=== PATIENT | male | born 2000 | race Native Hawaiian/Other Pacific Islander ===

== ENCOUNTER 2019-08-06 12:23 | Outpatient (CLI) | payer OTHER ==
[2019-08-06 12:54] LABS: POTASSIUM 3.6 mmol/L (3.6-5.2)
[2019-08-06 13:15] LABS: PLATELET COUNT 277 K/uL (142-355)
== END 2019-08-06 21:30 | disposition home or self-care (01) ==
LOC: LABW 12:23
PROVIDERS: Nurse Practitioner Family
DX: R50.9 Fever, unspecified (principal); R06.02 Shortness of breath; R93.89 Abnormal findings on diagnostic imaging of other specified body structures
CPT/HCPCS: 36415; 80053; 83880; 85027; 85379; 85651; 86140

== ENCOUNTER 2020-09-01 09:08 | Outpatient (CLI) | payer BC, OTHER | END 2020-09-01 22:17 | disposition home or self-care (01) | LOC: RESP 09:08 | PROVIDERS: ATTEND Nurse Practitioner Family | DX: M94.0 Chondrocostal junction syndrome [Tietze] (principal); R94.31 Abnormal electrocardiogram [ECG] [EKG] ==